=== PATIENT | male | born 1995 | race Caucasian/White ===

== ENCOUNTER 2017-06-28 10:11 | Observation (INO) | payer BC ==
[~2017-06-28] VITALS: Ht 182.9 cm; Wt 78.0 kg
[2017-06-28] MEDS ORDERED: ONDANSETRON INJ 2 MG/ML 2 ML VIAL IV STA ×2 (10:37→11:32)
[2017-06-28] MEDS ORDERED: SODIUM CHLORIDE 0.9% 1000ML 2,000 ML IV STA (10:37)
[2017-06-28] MEDS ORDERED: MoRPHine SULFATE 4 MG/ML 1 ML CARP\\VIAL IV STA (10:37)
[2017-06-28] MEDS ORDERED: KETOROLAC TROMETHAMINE 30 MG/ML VIAL IV STA (10:46)
[2017-06-28] MEDS ORDERED: SODIUM CHLORIDE 0.9% 1000ML 1,000 ML IV STA ×3 (10:47→11:34)
[2017-06-28 10:51] LABS: HEMATOCRIT 44.7 % (42-52); MEAN CELL VOLUME 86.5 fL (80-100); MEAN CORPUSCULAR HEMOGLOBIN 31.7 pg (25-34); MEAN CORPUSCULAR HGB CONC 36.7 g/dl (32-36); MEAN PLATELET VOLUME 9.7 fL (7.4-10.4); PLATELET COUNT 324 K/uL (130-400); RED BLOOD COUNT 5.17 M/uL (4.7-6.1); WHITE BLOOD COUNT 9.91 K/uL (4.8-10.8)
[2017-06-28] MEDS: MoRPHine SULFATE 4 MG/ML 1 ML CARP\\VIAL IV PRN ×2 (11:00→11:44)
[2017-06-28 11:07] LABS: BUN/CREATININE RATIO 11.3 (10-20); CALCIUM 9.7 mg/dl (8.5-10.1); CREATININE 1.31 mg/dl (0.60-1.40); POTASSIUM 3.5 mmol/L (3.5-5.1)
--- NOTE | 2017-06-28 11:24 | DIAGNOSTIC IMAGING REPORT ---
ABDOMEN AND PELVIS CT WITHOUT CONTRAST CT DOSE: 487.65 mGy.cm HISTORY: severe right flank pain TECHNIQUE: Multiaxial CT images of the abdomen and pelvis were performed without the use of intravenous and oral contrast according to the standard department stone protocol. A dose lowering technique was utilized adhering to the principles of ALARA. COMPARISON STUDY: None. FINDINGS: There is a punctate stone within the right kidney. There is also a punctate stone within the upper pole of the left kidney. Mild right hydronephrosis and mild right perinephric and periureteral edema due to an obstructing 2 mm stone within the distal right ureter. This is best seen on image 354. Bladder is decompressed. No left-sided hydronephrosis. The lung bases are clear. No fractures within the visualized osseous structures. The unenhanced liver, gallbladder, spleen, adrenal glands, and pancreas are unremarkable. No retroperitoneal lymphadenopathy. Suboptimal evaluation for bowel pathology due to the lack of intravenous and oral contrast. However, there is no definite bowel wall thickening or obstruction. Trace pelvic free fluid. The visualized appendix is normal. IMPRESSION: 1. A 2 mm obstructing stone within the distal right ureter resulting in mild right hydronephrosis. 2. Bilateral nephrolithiasis. Electronically signed by: Ramón Diaz M.D. 06/28/2017 11:23 AM Dictated Date/Time: 06/28/2017 11:18 AM
[2017-06-28 11:28] LABS: BASO % 0.5 %; BASO ABS # 0.05 K/uL (0-0.2); COMPLETE YES; EOS % 0.8 %; IG% 0.4 %; LYMPH % 21.3 %; LYMPH ABS # 2.11 K/uL (1.2-3.4); MONO % 9.3 %; NEUT % 67.7 %
[2017-06-28 12:01] VITALS: O2SAT 100; Ht 182.9 cm; Wt 78.0 kg
[2017-06-28] MEDS ORDERED: POLYETHYLENE (MIRALAX) 17 GM PACK PO PRN (12:15)
[2017-06-28] MEDS ORDERED: MAGNESIUM HYDROXIDE SUSP 30 ML UDC PO PRN (12:15)
[2017-06-28] MEDS ORDERED: ALUMINUM/MAGNESIUM/SIMETH (MAALOX MAX) 30 ML UDC PO PRN (12:15)
[2017-06-28] MEDS ORDERED: HEPARIN SOD 5000 UNIT/0.5 ML CARP SQ SCH (12:15)
[2017-06-28] MEDS ORDERED: ZOLPIDEM TARTRATE 5 MG TAB PO PRN ×2 (12:15)
[2017-06-28] MEDS ORDERED: ACETAMINOPHEN 325 MG TAB PO PRN (12:15)
[2017-06-28] MEDS ORDERED: ONDANSETRON INJ 2 MG/ML 2 ML VIAL IV PRN (12:15)
[2017-06-28] MEDS ORDERED: HYDROmorphone INJ 0.5 MG/0.5 ML SYR IV PRN ×2 (12:30)
[2017-06-28] MEDS ORDERED: KETOROLAC TROMETHAMINE 15 MG/ML VIAL IV PRN (12:30)
--- NOTE | 2017-06-28 12:58 | History and Physical ---
History & Physical Date & Time of Service: Jun 28, 2017 at 12:42 Chief Complaint: Acute Pain On Rt Side Primary Care Physician: Jerel Rodriguez DO History of Present Illness Source: patient 21 y/o M without active medical issues - Pt was playing football the prior day and fell on his R side. Since that time he has had progressive R lat back pain and nausea/vomiting. He presented to the ER as his vomiting and pain persisted. Initial labs are consistent with rhabdomyolysis and lactic acid is elevated. A CT abdomen was obtained revealing an obstructive distal R ureteral calculus with related hydronephrosis. He has not had fevers. Past Medical/Surgical History Medical Problems: (1) Submandibular gland mass Status: Resolved Family History Denies a significant family history Social History Does not smoke or drink - studying [employer] at [facility] Smoking Status: Never Smoker Immunizations History of Influenza Vaccine: Yes Influenza Vaccine Date: Aug 13, 2013 History of Tetanus Vaccine?: Yes Tetanus Immunization Date: Feb 22, 2010 History of Pneumococcal: No History of Hepatitis B Vaccine: Yes Multi-Drug Resistant Organisms History of MDRO: No Allergies Coded Allergies: No Known Allergies (Unverified , 06/28/17) Home Medications No Active Prescriptions or Reported Meds Review of Systems Constitutional: No fever, No chills, No sweats Eyes: No worsening of vision, No eye pain ENT: No hearing loss, No unusual epistaxis, No nasal symptoms Respiratory: No cough, No sputum, No wheezing Cardiovascular: No chest pain, No orthopnea, No PND Abdomen: + pain, + nausea, + vomiting, No diarrhea, No constipation Musculoskeletal: + joint pain, + muscle pain (LAt back pain) Genitourinary - Male: No hematuria, No dysuria Neurologic: No memory loss, No paralysis, No weakness Psychiatric: No depression symptoms Endocrine: No fatigue Hematologic / Lymphatic: No abnormal bleeding/bruising Integumentary: No rash Allergic / Immunologic: No environmental allergies Physical Exam Vital Signs Date Time Temp Pulse Resp B/P (MAP) Pulse Ox O2 Delivery O2 Flow Rate FiO2 06/28/17 11:28 57 06/28/17 11:24 53 18 144/93 100 Room Air 06/28/17 10:12 96 16 150/81 100 Room Air General Appearance: + pertinent finding (Pale appearing fit young male - no distress) Head: normocephalic, atraumatic Eyes: normal inspection ENT: normal ENT inspection, pharynx normal Neck: supple, no JVD Respiratory/Chest: chest non-tender, lungs clear, normal breath sounds Cardiovascular: regular rate, rhythm, no edema, no gallop, no JVD, no murmur, normal peripheral pulses Abdomen/GI: normal bowel sounds, non tender, soft Back: + pertinent finding (R sided tenderness) Extremities/Musculoskelatal: normal inspection, no calf tenderness, normal capillary refill Neurologic/Psych: lead 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 as tested, no motor/sensory deficits, alert, normal mood/affect, normal reflexes, oriented x 3 Skin: normal color, warm/dry, no rash Diagnostics Laboratory Results Results Past 24 Hours Test 06/28/17 10:30 06/28/17 10:33 Range/Units White Blood Count 9.91 4.8-10.8 K/uL Red Blood Count 5.17 4.7-6.1 M/uL Hemoglobin 16.4 14.0-18.0 g/dL Hematocrit 44.7 42-52 % Mean Corpuscular Volume 86.5 80-100 fL Mean Corpuscular Hemoglobin 31.7 25-34 pg Mean Corpuscular Hemoglobin Concent 36.7 32-36 g/dl Platelet Count 324 130-400 K/uL Mean Platelet Volume 9.7 7.4-10.4 fL Neutrophils (%) (Auto) 67.7 % Lymphocytes (%) (Auto) 21.3 % Monocytes (%) (Auto) 9.3 % Eosinophils (%) (Auto) 0.8 % Basophils (%) (Auto) 0.5 % Neutrophils # (Auto) 6.71 1.4-6.5 K/uL Lymphocytes # (Auto) 2.11 1.2-3.4 K/uL Monocytes # (Auto) 0.92 0.11-0.59 K/uL Eosinophils # (Auto) 0.08 0-0.5 K/uL Basophils # (Auto) 0.05 0-0.2 K/uL RDW Standard Deviation 39.4 36.4-46.3 fL RDW Coefficient of Variation 12.3 11.5-14.5 % Immature Granulocyte % (Auto) 0.4 % Immature Granulocyte # (Auto) 0.04 0.00-0.02 K/uL Sodium Level 139 136-145 mmol/L Potassium Level 3.5 3.5-5.1 mmol/L Chloride Level 104 98-107 mmol/L Carbon Dioxide Level 21 21-32 mmol/L Anion Gap 14.0 3-11 mmol/L Blood Urea Nitrogen 15 7-18 mg/dl Creatinine 1.31 0.60-1.40 mg/dl Est Creatinine Clear Calc Drug Dose 99.6 ml/min Estimated GFR () 90.8 Estimated GFR (Non- 78.4 BUN/Creatinine Ratio 11.3 10-20 Random Glucose 127 70-99 mg/dl Calcium Level 9.7 8.5-10.1 mg/dl Total Bilirubin 0.8 0.2-1 mg/dl Direct Bilirubin 0.1 0-0.2 mg/dl Aspartate Amino Transf (AST/SGOT) 49 15-37 U/L Alanine Aminotransferase (ALT/SGPT) 30 12-78 U/L Alkaline Phosphatase 91 45-117 U/L Total Creatine Kinase 2173 39-308 U/L Total Protein 8.2 6.4-8.2 gm/dl Albumin 4.3 3.4-5.0 gm/dl Lipase 145 73-393 U/L Bedside Lactic Acid Venous 5.42 0.90-1.70 mmol/L Diagnostic Radiology CT abdomen 1. A 2 mm obstructing stone within the distal right ureter resulting in mild right hydronephrosis. 2. Bilateral nephrolithiasis. Impression Assessment and Plan 21 y/o M without active medical issues - Pt was playing football the prior day and fell on his R side. Since that time he has had progressive R lat back pain and nausea/vomiting. He presented to the ER as his vomiting and pain persisted. Initial labs are consistent with rhabdomyolysis and lactic acid is elevated. A CT abdomen was obtained revealing an obstructive distal R ureteral calculus with related hydronephrosis. He has not had fevers. 1) Obstructing calculus - distal 2mm ureteral - this is likely to pass spontaneously and may be the souce of his persistent pain rather than trauma from football. IVF provided - will consult urology - UA pending to r/o infection 2) Rhabdomyolysis - Aggressive IVF - trend electrolytes 3) Nasua/vomiting/dehydration - likely cause of lactic elevation - IVF, antiemetics provided Full code Heparin to be provided AM if remains hospitalized - SCDs for now due to wretching and obstructing stone Total time for this admit including review of labs, imaging - discussion with pt , parent, ER attending - 38 min Level of Care Med/Surg Advanced Directives Existing Living Will: No Existing Power of Miniature Set Designer: No VTE Prophylaxis VTE Risk Assessment Done? Y/N: Yes Risk Level: Very Low Given or contraindicated: SCD's
[2017-06-28] MEDS ORDERED: IV FLUIDS COMPLETED PRN (13:45)
[2017-06-28 14:17] VITALS: BP 165/91; PULSE 83; TEMP 36.4; O2SAT 97
[2017-06-28] MEDS: NSS + 20MEQ KCL 1000ML 1,000 ML IV SCH ×2 (15:11→20:35)
[2017-06-28 15:44] VITALS: BP 118/68; PULSE 65; TEMP 36.3; O2SAT 97
[2017-06-28 15:48] LABS: URINE APPEARANCE CLEAR (CLEAR); URINE BILIRUBIN NEG (NEG); URINE COLOR YELLOW; URINE EPITHELIAL CELL AUTO >30 /lpf (0-5); URINE NITRITE NEG (NEG); URINE PH 7.5 (4.5-7.5); URINE SPECIFIC GRAVITY 1.023 (1.000-1.030); UROBILINOGEN NEG (NEG); ZZUR CULT IF INDIC CLEAN CATCH NO
[2017-06-28 15:57] LABS: MANUAL MICROSCOPIC REQUIRED? NO; REVIEW REQ? YES
--- NOTE | 2017-06-28 17:46 | EMERGENCY ROOM VISIT NOTE ---
History Report prepared by Vasuibguy: Tuan Awan Under the Supervision of: Dr. Barrie Boles M.D. First contact with patient: 10:29 Chief Complaint: ABDOMINAL PAIN Stated Complaint: ACUTE PAIN ON RT SIDE History of Present Illness The patient is a 21 year old male who presents to the Emergency Room with complaints of constant right flank pain beginning this morning. He also complains of four episodes of vomiting. He states that he woke up with his symptoms, but felt completely normal yesterday. Per mother, nothing has improved the patient's pain. The patient states that he has some pain in his right lower abdomen currently. He notes that he was playing flag football yesterday and landed on his right side. Pt denies LOC, headache, neck pain, fevers, chills, malaise, night sweats, weight loss, history of malignancy, chest pain, breathing difficulties, saddle paraesthesias, bowel or bladder dysfunction, numbness, weakness, urinary symptoms, or other complaints. Source of History: patient Onset: This morning Position: other (right flank) Timing: constant Modifying Factors (Relieving): other (none) Associated Symptoms: + vomiting, + abdominal pain (right lower) Review of Systems See HPI for pertinent positives and negatives. A total of ten systems were reviewed and were otherwise negative. Past Medical & Surgical Medical Problems: (1) No Known Active Medical Problems (2) Rhabdomyolysis (3) Submandibular gland mass (4) Ureteral calculus Family History No pertinent family history stated. 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 Oropharynx unremarkable. EYES: Normal conjunctiva. Sclera non-icteric. NECK: Supple. No nuchal rigidity. FROM. No JVD. RESPIRATORY: Clear to auscultation. CARDIAC: Regular rate, normal rhythm. Extremities warm and well perfused. Pulses equal. ABDOMEN: Soft, non-distended. No tenderness to palpation. No rebound or guarding. No masses. RECTAL: Deferred. MUSCULOSKELETAL: Chest examination reveals no tenderness. The back is symmetrical on inspection without obvious abnormality. Right CVA and flank tenderness to palpation. No joint edema. LOWER EXTREMITIES: Calves are equal size bilaterally and non-tender. No edema. No discoloration. NEURO: Normal sensorium. No sensory or motor deficits noted. SKIN: No rash or jaundice noted. Medical Decision & Procedures ER Provider Diagnostic Interpretation: CT: Radiology results as stated below per my review and radiologist interpretation ABDOMEN AND PELVIS CT WITHOUT CONTRAST FINDINGS: There is a punctate stone within the right kidney. There is also a punctate stone within the upper pole of the left kidney. Mild right hydronephrosis and mild right perinephric and periureteral edema due to an obstructing 2 mm stone within the distal right ureter. This is best seen on image 354. Bladder is decompressed. No left-sided hydronephrosis. The lung bases are clear. No fractures within the visualized osseous structures. The unenhanced liver, gallbladder, spleen, adrenal glands, and pancreas are unremarkable. No retroperitoneal lymphadenopathy. Suboptimal evaluation for bowel pathology due to the lack of intravenous and oral contrast. However, there is no definite bowel wall thickening or obstruction. Trace pelvic free fluid. The visualized appendix is normal. IMPRESSION: 1. A 2 mm obstructing stone within the distal right ureter resulting in mild right hydronephrosis. 2. Bilateral nephrolithiasis. Electronically signed by: Ramón Diaz M.D. 06/28/2017 11:23 AM Laboratory Results 06/28/17 10:30 Red Blood Count 5.17, Mean Corpuscular Volume 86.5, Mean Corpuscular Hemoglobin 31.7, Mean Corpuscular Hemoglobin Concent 36.7, Mean Platelet Volume 9.7, Neutrophils (%) (Auto) 67.7, Lymphocytes (%) (Auto) 21.3, Monocytes (%) (Auto) 9.3, Eosinophils (%) (Auto) 0.8, Basophils (%) (Auto) 0.5, Neutrophils # (Auto) 6.71, Lymphocytes # (Auto) 2.11, Monocytes # (Auto) 0.92, Eosinophils # (Auto) 0.08, Basophils # (Auto) 0.05 06/28/17 10:30 Test 06/28/17 00:00 06/28/17 10:30 06/28/17 10:33 Urine Color YELLOW Urine Appearance CLEAR (CLEAR) Urine pH 7.5 (4.5-7.5) Urine Specific [place] 1.023 (1.000-1.030) Urine Protein NEG (NEG) Urine Glucose (UA) NEG (NEG) Urine Ketones 4+ (NEG) Urine Occult Blood 1+ (NEG) Urine Nitrite NEG (NEG) Urine Bilirubin NEG (NEG) Urine Urobilinogen NEG (NEG) Urine Leukocyte Esterase NEG (NEG) Urine WBC (Auto) 1-5 /hpf (0-5) Urine RBC (Auto) 10-30 /hpf (0-4) Urine Hyaline Casts (Auto) 10-30 /lpf (0-5) Urine Epithelial Cells (Auto) >30 /lpf (0-5) Urine Bacteria (Auto) NEG (NEG) Urine Renal Epithelial Cells /lpf (0-5) White Blood Count 9.91 K/uL (4.8-10.8) Red Blood Count 5.17 M/uL (4.7-6.1) Hemoglobin 16.4 g/dL (14.0-18.0) Hematocrit 44.7 % (42-52) Mean Corpuscular Volume 86.5 fL (80-100) Mean Corpuscular Hemoglobin 31.7 pg (25-34) Mean Corpuscular Hemoglobin Concent 36.7 g/dl (32-36) Platelet Count 324 K/uL (130-400) Mean Platelet Volume 9.7 fL (7.4-10.4) Neutrophils (%) (Auto) 67.7 % Lymphocytes (%) (Auto) 21.3 % Monocytes (%) (Auto) 9.3 % Eosinophils (%) (Auto) 0.8 % Basophils (%) (Auto) 0.5 % Neutrophils # (Auto) 6.71 K/uL (1.4-6.5) Lymphocytes # (Auto) 2.11 K/uL (1.2-3.4) Monocytes # (Auto) 0.92 K/uL (0.11-0.59) Eosinophils # (Auto) 0.08 K/uL (0-0.5) Basophils # (Auto) 0.05 K/uL (0-0.2) RDW Standard Deviation 39.4 fL (36.4-46.3) RDW Coefficient of Variation 12.3 % (11.5-14.5) Immature Granulocyte % (Auto) 0.4 % Immature Granulocyte # (Auto) 0.04 K/uL (0.00-0.02) Anion Gap 14.0 mmol/L (3-11) Est Creatinine Clear Calc Drug Dose 99.6 ml/min Estimated GFR () 90.8 Estimated GFR (Non- 78.4 BUN/Creatinine Ratio 11.3 (10-20) Calcium Level 9.7 mg/dl (8.5-10.1) Total Bilirubin 0.8 mg/dl (0.2-1) Direct Bilirubin 0.1 mg/dl (0-0.2) Aspartate Amino Transf (AST/SGOT) 49 U/L (15-37) Alanine Aminotransferase (ALT/SGPT) 30 U/L (12-78) Alkaline Phosphatase 91 U/L (45-117) Total Creatine Kinase 2173 U/L (39-308) Total Protein 8.2 gm/dl (6.4-8.2) Albumin 4.3 gm/dl (3.4-5.0) Lipase 145 U/L (73-393) Bedside Lactic Acid Venous 5.42 mmol/L (0.90-1.70) Laboratory results reviewed by me Medications Administered Medications (Trade) Dose Ordered Sig/Dorian Route Start Time Stop Time Status Last Admin Dose Admin Sodium Chloride 2,000 ml @ 999 mls/hr Q2H1M STAT IV 06/28/17 10:37 06/28/17 10:48 DC 06/28/17 10:37 999 MLS/HR Morphine Sulfate (MoRPHine SULFATE INJ) 4 mg NOW STAT IV 06/28/17 10:37 06/28/17 10:39 DC 06/28/17 10:43 4 MG Ondansetron HCl (Zofran Inj) 4 mg NOW STAT IV 06/28/17 10:37 06/28/17 10:39 DC 06/28/17 10:43 4 MG Ketorolac Tromethamine (Toradol Inj) 10 mg NOW STAT IV 06/28/17 10:46 06/28/17 10:47 DC 06/28/17 11:01 10 MG Sodium Chloride 1,000 ml @ 999 mls/hr Q1H1M STAT IV 06/28/17 10:47 06/28/17 11:47 DC 06/28/17 11:43 999 MLS/HR Morphine Sulfate (MoRPHine SULFATE INJ) 4 mg Q15M PRN IV 06/28/17 11:00 06/28/17 12:20 DC 06/28/17 11:44 4 MG Ondansetron HCl (Zofran Inj) 4 mg NOW STAT IV 06/28/17 11:32 06/28/17 11:35 DC 06/28/17 11:44 4 MG Sodium Chloride 1,000 ml @ 999 mls/hr Q1H1M STAT IV 06/28/17 11:34 06/28/17 12:34 DC 06/28/17 11:34 999 MLS/HR Sodium Chloride 1,000 ml @ 200 mls/hr Q5H STAT IV 06/28/17 11:34 06/28/17 14:36 DC 06/28/17 11:34 200 MLS/HR Ondansetron HCl (Zofran Inj) 4 mg Q6H PRN IV 06/28/17 12:15 07/28/17 12:14 06/28/17 17:04 4 MG ED Course 1043: The patient was evaluated in room B4A. A complete history and physical exam was performed. Ordered Zofran Inj 4 mg IV, Morphine Sulfate 4 mg IV, Sodium Chloride 2000 ml @ 999 mls/hr IV. 1046: Ordered Toradol Inj 10 mg IV, Sodium Chloride 1000 ml @ 999 mls/hr IV. 1100: Ordered Morphine Sulfate 4 mg IV. 1050: I conducted a bedside ultrasound. No free fluid seen. Right sided hydronephrosis noted. 1132: Ordered Zofran Inj 4 mg IV, Sodium Chloride 1000 ml @ 200 mls/hr IV, Sodium Chloride 1000 ml @ 999 mls/hr IV. 1135: Upon reexamination, the patient was resting comfortably. I discussed the test results and treatment plan with him. The patient will be evaluated for further management. Medical Decision Triage Nursing notes reviewed. The patient's presentation and history were concerning for flank pain. Etiologies such as renal colic, appendicitis, diverticulitis, mesenteric ischemia, aortic pathology, infections, inflammatory bowel disease, PUD, biliary pathology, UTI, as well as others were entertained. The patient was evaluated. He was very irritable. He was hydrated. He is given multiple doses of morphine and Zofran. He also given Toradol. He still had pain and was given IV Dilaudid. The patient gradually improved. He had extra fluids administered. The patient was found to have an unremarkable CBC and chemistry panel. He did have a significant elevation of his total CK. The patient had hematuria without sign of infection. He had an elevated lactate. Given his levels of symptoms and intractable pain and vomiting he will need further evaluation and management in the hospital. I discussed this with the patient and his family. They were in agreement. The patient's had a consultation placed with internal medicine. He was evaluated in the Emergency Room for further management. Medication Reconcilliation Current Medication List: was personally reviewed by me Blood Pressure Screening Patient's blood pressure: Elevated blood pressure Blood pressure disposition: Elevated BP felt to be situational Consults Time Called: 1135 Consulting Physician: Dr. Marleny WILKERSON Returned Call: [phone] Discussed the patient's case. The patient will be evaluated for further treatment and disposition. Impression Primary Impression: Right ureteral stone Additional Impressions: Rhabdomyolysis Vomiting Scribe Attestation The scribe's documentation has been prepared under my direction and personally reviewed by me in its entirety. I confirm that the note above accurately reflects all work, treatment, procedures, and medical decision making performed by me. Departure Information Dispostion Being Evaluated By Hospitalist Prescriptions No Active Prescriptions or Reported Meds Referrals No Doctor, Assigned (PCP) Patient Instructions [facility] Problem Qualifiers
[2017-06-28 18:00] VITALS: O2SAT 97
[2017-06-28 19:16] LABS: BUN/CREATININE RATIO 15.4 (10-20); CALCIUM 8.7 mg/dl (8.5-10.1); CREATININE 0.91 mg/dl (0.60-1.40); MAGNESIUM 1.9 mg/dl (1.8-2.4); POTASSIUM 4.8 mmol/L (3.5-5.1)
[2017-06-28 19:29] LABS: PHOSPHORUS 3.4 mg/dl (2.5-4.9)
[2017-06-28 19:44] VITALS: BP 119/57; PULSE 55; TEMP 36.5; O2SAT 100
[2017-06-28 20:01] LABS: MEAN CORPUSCULAR HEMOGLOBIN 30.3 pg (25-34); MEAN CORPUSCULAR HGB CONC 34.5 g/dl (32-36); MEAN PLATELET VOLUME 9.4 fL (7.4-10.4); PLATELET COUNT 236 K/uL (130-400); RED BLOOD COUNT 4.32 M/uL (4.7-6.1); WHITE BLOOD COUNT 11.55 K/uL (4.8-10.8)
[2017-06-29 00:24] VITALS: BP 131/74; PULSE 65; TEMP 36.2; O2SAT 98
[2017-06-29] MEDS: NSS + 20MEQ KCL 1000ML 1,000 ML IV SCH (00:59)
[2017-06-29 06:45] LABS: HEMATOCRIT 37.9 % (42-52); MEAN CELL VOLUME 89.4 fL (80-100); MEAN CORPUSCULAR HEMOGLOBIN 30.9 pg (25-34); MEAN CORPUSCULAR HGB CONC 34.6 g/dl (32-36); MEAN PLATELET VOLUME 9.5 fL (7.4-10.4); PLATELET COUNT 222 K/uL (130-400); RED BLOOD COUNT 4.24 M/uL (4.7-6.1); WHITE BLOOD COUNT 8.46 K/uL (4.8-10.8)
[2017-06-29 07:10] VITALS: BP 107/58; PULSE 55; TEMP 36.8; O2SAT 100
[2017-06-29 07:39] LABS: BUN/CREATININE RATIO 10.5 (10-20); CALCIUM 8.3 mg/dl (8.5-10.1); CREATININE 0.84 mg/dl (0.60-1.40); PHOSPHORUS 3.1 mg/dl (2.5-4.9); POTASSIUM 4.4 mmol/L (3.5-5.1)
[2017-06-29 08:00] VITALS: O2SAT 100
[2017-06-29] MEDS ORDERED: INFLUENZA ADMINISTRATION CHARGE ONE (08:00)
[2017-06-29] MEDS ORDERED: INFLUENZA VIRUS QUAD VACCINE 0.5 ML SYR IM. ONE (08:00)
--- NOTE | 2017-06-29 09:47 | Discharge Instructions ---
Discharge Instructions Date of Service Jun 29, 2017. Admission Reason for Admission: Rhabdomyolysis, Ureteral Calculus Discharge Discharge Diagnosis / Problem: muscle breakdown / dehydration / renal stone Discharge Goals Goal(s): Decrease discomfort Activity Recommendations Activity Limitations: resume your previous activity Driving or Machine Use: no limitations . Current Hospital Diet Patient's current hospital diet: Regular Diet Discharge Diet Recommended Diet: Regular Diet Pending Studies Studies pending at discharge: no Medical Emergencies . Who to Call and When: Medical Emergencies: If at any time you feel your situation is an emergency, please call 911 immediately. . Non-Emergent Contact Non-Emergency issues call your: Primary Care Provider, Urologist . . "Provider Documentation" section prepared by Jessie Looney. . Fax Machine Operator Recommendations Fax Machine Operator Recommendations: drink 6-8 cups of water everyday for the rest of your life for the next 2 weeks drink Gaterade 16 Oz every day see urologist in 4 weeks restrain your urine for the next 2-3 days in hope to capture the stone if it didn't pass already VTE Core Measure Inpt VTE Proph given/why not?: SCD's
[2017-06-29] MEDS ORDERED: TRAM-453 PO (09:48)
[2017-06-29 10:15] VITALS: BP 107/58; PULSE 55; TEMP 36.8; O2SAT 100
--- NOTE | 2017-06-29 13:07 | Discharge Summary ---
Discharge Summary Date of Service Jun 29, 2017. Discharge Summary Admission Date: Jun 28, 2017 at 12:19 Discharge Date: Jun 29, 2017 Discharge Disposition: Home Principal Diagnosis: rhabdomyolysis/right ureteric stone with hydro-ureter Immunizations: Have You Had Influenza Vaccine: Yes Influenza Vaccine Date: Aug 13, 2013 History of Tetanus Vaccine?: Yes Tetanus Immunization Date: Feb 22, 2010 History of Pneumococcal: No History of Hepatitis B Vaccine: Yes Medication Reconciliation New Medications: Tramadol Hcl (Ultram) 50 Mg Tab 1 TAB PO Q6H PRN for Pain for 7 Days, #4 TAB Referrals At Discharge Follow up Referrals: Urologist Referral - Within a Month with Stanley Haywood D.O. Discharge Exam Review of Systems: Constitutional: No fever, No chills, No sweats, No weight loss, No weakness , No fatigue, No problem reported Eyes: No worsening of vision, No eye pain, No redness, No discharge, No diplopia, No problem reported ENT: No hearing loss, No unusual epistaxis, No nasal symptoms, No sore throat, No tinnitus, No dental problems, No trouble swallowing, No problem reported Respiratory: No cough, No sputum, No wheezing, No shortness of breath, No dyspnea on exertion, No dyspnea at rest, No hemoptysis, No problem reported Cardiovascular: No chest pain, No orthopnea, No PND, No edema, No claudication, No palpitations, No problem reported Abdomen: No pain, No nausea, No vomiting, No diarrhea, No constipation, No GI bleeding, No problem reported Musculoskeletal: No joint pain, No muscle pain, No swelling, No calf pain, No problem reported Genitourinary - Male: No hematuria, No dysuria, No urinary frequency, No urinary urgency, No urinary hesitancy, No urinary retention, No urinary incontinence, No penile discharge, No lesions, No impotence, No problem reported Neurologic: No memory loss, No paralysis, No weakness, No numbness/tingling , No vertigo, No balance problems, No problem reported Psychiatric: No depression symptoms, No anhedonism, No anxiety, No insomnia , No substance abuse, No problem reported Endocrine: No fatigue, No excessive thirst, No excessive urination, No problem reported Hematologic / Lymphatic: No abnormal bleeding/bruising, No clotting problems , No swollen lymph nodes, No night sweats, No problem reported Integumentary: No rash, No itch, No new/changing skin lesions, No color change, No bleeding, No problem reported Physical Exam: General Appearance: WD/WN, no apparent distress Eyes: normal inspection, EOMI ENT: normal ENT inspection, hearing grossly normal Neck: supple Respiratory/Chest: chest non-tender, lungs clear, normal breath sounds, no respiratory distress, no accessory muscle use Cardiovascular: regular rate, rhythm, no edema, no gallop, no JVD, no murmur , normal peripheral pulses Abdomen / GI: non tender, soft, no organomegaly, no pulsatile mass Extremities: normal inspection, no calf tenderness, normal capillary refill Neurologic/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 Presented to the ER after sustaining a fall while playing football. Complained of right-sided pain. Found to have Obstructing calculus - distal 2mm ureteral also was found to have Rhabdomyolysis with CPK of 1300 . Patient was admitted for Aggressive IVF, received 3 L of IV normal saline infusion. Patient reported that he went to urinate and he felt pain in his venous where the urine was obstructed but then suddenly there and started flowing strongly, he did not see a stone but she thinks he passed it. Case was discussed with urologist will follow-up the patient in 4 weeks and repeat imaging to make sure the hydronephrosis resolved. Patient repeat CPK today is only 800, patient would like to be home and was found within acceptable stability for discharge. Total Time Spent: Less than 30 minutes This includes examination of the patient, discharge planning, medication reconciliation, and communication with other providers. Discharge Instructions Please refer to the electronic Patient Visit Report (Discharge Instructions) for additional information.
== END 2017-06-29 10:40 | disposition home or self-care (01) ==
LOC: C.EDB 10:12 → C.MS2W 12:19 → ENRESERV 12:50
PROVIDERS: ADMIT Internal Medicine; ATTEND Internal Medicine
DX: N20.1 Calculus of ureter (principal); M62.82 Rhabdomyolysis

== ENCOUNTER → 2017-07-29 | Outpatient (CLI) | payer BC ==
--- NOTE | 2017-07-29 12:16 | DIAGNOSTIC IMAGING REPORT ---
RENAL ULTRASOUND CLINICAL HISTORY: Ureteral stone. COMPARISON STUDY: CT of the abdomen and pelvis June 28, 2017. TECHNIQUE: Sonography of the kidneys and the urinary bladder was performed. FINDINGS: The right kidney measures 11.4 x 3.6 x 5 cm and the left measures 10.6 x 6.2 x 4.9 cm. There is no hydronephrosis. Right hydronephrosis shown on CT of June 28, 2017 has resolved. Both ureteral jets were identified. Punctate bilateral renal calculi were noted. IMPRESSION: 1. No hydronephrosis. 2. Punctate bilateral renal calculi. Electronically signed by: Jose Alejandro Moreno M.D. 07/29/2017 12:15 PM Dictated Date/Time: 07/29/2017 12:13 PM
--- NOTE | 2017-07-29 14:25 | DIAGNOSTIC IMAGING REPORT ---
KUB CLINICAL HISTORY: Ureteral stone. FINDINGS: An AP abdominal radiograph is correlated with abdominal CT dated 06/28/2017 and renal ultrasound dated 07/29/2017. There is a nonobstructed abdominal bowel gas pattern noting moderate colonic fecal retention. There is no radiographic evidence of nephrolithiasis. No calculus is seen projecting over the ureters. The bony structures appear intact. IMPRESSION: 1. There is no radiographic evidence of nephrolithiasis. 2. Punctate renal calculi seen by CT on 06/28/2017 are not apparent by x-ray. Electronically signed by: Charan Lopez M.D. 07/29/2017 2:24 PM Dictated Date/Time: 07/29/2017 2:22 PM
== END | disposition home or self-care (01) ==
LOC: C.ULTRBC 09:48
PROVIDERS: ATTEND Urology
DX: N20.1 Calculus of ureter (principal)